=== PATIENT | female | born 1940 | race Caucasian/White ===

== ENCOUNTER → 2016-09-20 | Outpatient (CLI) | payer OTHER, BC ==
[~2016-09-20] MED LIST: ASTELIN, ASTEPR30 ML NS; ATENOLOL50 MG PO; CALCIUM + D TA1 EACH PO; CRESTOR10 MG PO; DIOVAN HCT 11 TABLE1 PO; GLUCOPHAGE500 MG; MULTIVITAMINS1 EAC2 PO; OMEGA 3-6-91200 MG PO; PRAVASTATIN SOD10 MG PO; PROTONIX40 MG PO; PULMICORT180 MICROG IH; WARFARIN SODIUM5 MG PO
== END | disposition home or self-care (01) ==
DX: R13.10 Dysphagia, unspecified (principal); K21.9 Gastro-esophageal reflux disease without esophagitis
CPT/HCPCS: 92611 GN; G8996 GN; G8997 GN; G8998 GN